=== PATIENT | female | born 1965 | race Hispanic/Latino ===

== ENCOUNTER 2017-12-23 11:47 | Day surgery (SDC) | payer OTHER ==
[2017-12-17 13:46] VITALS: BMI 25.5
[2017-12-23] MEDS ORDERED: Lidocaine/Epinephrine 1% 1:100000 10 ML IJ ONE (14:44)
[2017-12-23] MEDS ORDERED: ceFAZolin IV 1 gm in Dextrose 2 GM/100 ML BAG IVPB ONE (14:44)
[2017-12-23] MEDS ORDERED: Bupivacaine 0.25% 20 ML INJ IJ ONE (14:44)
[2017-12-23] MEDS ORDERED: HYDROmorphone 0.5 mg/0.5 ml ISec IVP PRN (15:49)
--- NOTE | 2017-12-23 16:25 | PCM.SURG1 ---
Surgeon's Initial Post Op Note - Surgeon's Notes Surgeon: Dr. Will Co Director: Estella Pruett OMS-III Type of Anesthesia: IV Sedation Anesthesia Administered By: Local IV sedation Pre-Operative Diagnosis: Dermatofibroma of R medial calf Operative Findings: R calf lesion with healed scar Post-Operative Diagnosis: Same Operation Performed: Wide excision of R calf lesion Specimen/Specimens Removed: Dermatofibroma lesion with margin of R posterior [id number] Estimated Blood Loss: EBL {In ML}: 5 Blood Products Given: N/A Drains Used: No Drains Post-Op Condition: Good Date of Surgery/Procedure: 12/23/17 Time of Surgery/Procedure: 16:24
[2017-12-23] MEDS ORDERED: Oxycodone/Acetaminophen 5/325 mg Tab PO PRN (16:31)
[2017-12-23 18:34] VITALS: RESP 16; O2SAT 98
[2017-12-23 18:45] VITALS: BP 105/67; PULSE 61; TEMP 97.7
--- NOTE | 2017-12-24 04:10 | OP ---
PROCEDURE DATE: 12/23/2017 PREOPERATIVE DIAGNOSIS: Right calf lesion posteriorly 2 x 1 cm in size. POSTOPERATIVE DIAGNOSIS: Right calf lesion posteriorly 2 x 1 cm in size. PROCEDURES DONE: 1. Wide local excision of the right calf lesion 2 x 1 cm in size. 2. Layered closure of the wound 2 x 1 x 1 cm in size. ANESTHESIA: Local anesthesia plus sedation. ESTIMATED BLOOD LOSS: Around 5 mL. DRAINS: None. PATHOLOGY: The right calf lesion was sent to pathology. COMPLICATIONS: None. INTRAOPERATIVE FINDINGS: The patient had approximately 2 x 1 cm irregular shaped right calf lesion. DESCRIPTION OF PROCEDURE: On intraoperative steps, this is a 52-year-old female who was diagnosed with a dermatofibroma of the right calf lesion, and the patient had recurrent at the site of previous excision in September, and the patient was considered for the wide local excision, brought to the OR, and placed supine on the operating table. After induction of the anesthesia, the right calf was prepped and draped in the usual sterile fashion. The patient was placed in the prone position. The sedation was given, and local anesthesia was injected. The elliptical incision was made, and right calf lesion was completely excised up to the subcutaneous, and it was sent off the table for the pathology, and wound was irrigated. Now, the wound was approximately 2 x 1 x 1 cm size, and multilayered closure was done. The deep subcu with 2-0 Vicryl, superficial subcu with 3-0 Vicryl, skin with 4-0 Monocryl, and dry sterile dressing was applied. The patient tolerated the procedure well. Count of instrument and gauze was correct. There was no apparent complication. The patient was reversed from sedation and sent to the postanesthesia care unit in stable condition. Justin Will MD
== END 2017-12-23 18:53 | disposition home or self-care (01) ==
LOC: C.SDS 11:47
PROVIDERS: ATTEND Surgery Surgical Critical Care
DX: D21.21 Benign neoplasm of connective and other soft tissue of right lower limb, including hip (principal)
CPT/HCPCS: 13120; 27327; 88305; J0690; J1170